=== PATIENT | male | born 1990 | race Caucasian/White ===

== ENCOUNTER 2016-07-04 21:38 | Emergency (ER) | payer OTHER ==
[~2016-07-04] VITALS: Ht 170.2 cm; Wt 97.0 kg
[~2016-07-04 21:38] MED LIST: DOXYCYCLINE HY100 M3 PO; NORCO 5/3251 TABLET PO
[2016-07-04 23:14] LABS: HEMATOCRIT 43.9 % (38.0-50.0); MCH 29.8 PG (29.0-34.0); MCHC 35.1 G/DL (30.0-36.0); MCV 84.9 FL (86-99); MEAN PLAT.VOLUME 10.2 uM^3 (9.0-12.4); PLATELET COUNT 332 K/uL (156-360); RBC DIS.WIDTH-CV 12.3 % (11.8-14.6); RBC DIS.WIDTH-SD 38.2 % (39-53); RED BLOOD COUNT 5.17 M/uL (4.00-5.50); WHITE BLOOD COUNT 8.6 K/uL (4.1-10.2)
[2016-07-04 23:25] LABS: D-DIMER ELISA < 0.15 mg/L FEU (< 0.57)
[2016-07-04 23:28] LABS: CHLORIDE 105 mEq/L (99-109); POTASSIUM 3.9 mEq/L (3.7-5.4); SODIUM 140 mEq/L (136-147)
[2016-07-04 23:30] LABS: GLUCOSE 92 mg/dL (70-99)
[2016-07-04 23:31] LABS: ANION GAP 8 MEQ/L (2-14)
[2016-07-04 23:32] LABS: TOTAL BILIRUBIN 0.5 mg/dL (0.0-1.0)
[2016-07-04 23:33] LABS: ALKALINE PHOSPHATASE 53 IU/L (3-129)
[2016-07-04 23:34] LABS: GFR ESTIMATE (CALCULATED) > 59 mL/min/
[2016-07-04 23:35] LABS: TROP-I INTERPRETATION NEGATIVE; TROPONIN-I < 0.01 ng/mL (0.0-0.30); UREA NITROGEN (BUN) 15 mg/dL (9-23)
[2016-07-04 23:53] VITALS: BP 133/81
== END 2016-07-04 23:53 | disposition home or self-care (01) ==
LOC: EME 21:38
PROVIDERS: Physician Assistant
DX: R07.9 Chest pain, unspecified (principal); K21.9 Gastro-esophageal reflux disease without esophagitis; Z87.891 Personal history of nicotine dependence
CPT/HCPCS: 71020; 80053; 84484; 85027; 85379; 93005; 99281; 99284